=== PATIENT | female | born 1960 | race Caucasian/White ===

== ENCOUNTER 2022-08-27 06:00 | Day surgery (SDC) | payer MEDICAID ==
[~2022-08-27] VITALS: Ht 165.1 cm; Wt 96.2 kg
[2022-08-27] MEDS ORDERED: MEPERIDINE 100 MG INJ. 100 MG/ML VIAL ONE (06:41)
[2022-08-27] MEDS ORDERED: MIDAZOLAM HCL 5 MG/5 ML VIAL ONE (06:41)
[2022-08-27 11:26] VITALS: BP_SYST 127
== END 2022-08-27 10:10 | disposition home or self-care (01) ==
LOC: SDS 06:00 → SMU 06:00 → SDS 10:10
PROVIDERS: ATTEND Internal Medicine Gastroenterology
DX: R19.4 Change in bowel habit (principal); D12.8 Benign neoplasm of rectum; K64.8 Other hemorrhoids; I10 Essential (primary) hypertension; E78.5 Hyperlipidemia, unspecified; Z79.899 Other long term (current) drug therapy
CPT/HCPCS: 45380; 45385; 88305; 99152; 99153; G0378; J2250; J2175